=== PATIENT | male | born 1965 | race Caucasian/White ===

== ENCOUNTER → 2021-05-28 15:48 | Outpatient (CLI) | payer OTHER, SELFPAY | PROVIDERS: PCP Family Medicine; Visit Provider Nurse Practitioner | DX: Z20.822 Contact with and (suspected) exposure to COVID-19 (principal) | CPT/HCPCS: C9803; U0003; U0005 ==

== ENCOUNTER → 2021-06-03 09:14 | Outpatient (CLI) | payer OTHER, SELFPAY | PROVIDERS: PCP Family Medicine; Visit Provider Nurse Practitioner | DX: Z20.822 Contact with and (suspected) exposure to COVID-19 (principal) | CPT/HCPCS: C9803; U0003; U0005 ==

== ENCOUNTER → 2021-11-23 08:36 | Outpatient (POV) | payer OTHER, SELFPAY | PROVIDERS: Visit Provider Dermatology | DX: Z00.00 Encounter for general adult medical examination without abnormal findings (principal) ==

== ENCOUNTER → 2021-12-21 08:46 | Outpatient (POV) | payer OTHER, SELFPAY | PROVIDERS: Visit Provider Dermatology | DX: Z00.00 Encounter for general adult medical examination without abnormal findings (principal) ==

== ENCOUNTER 2023-08-11 10:48 | Emergency (ER) | payer BC, SELFPAY ==
[2023-08-11] VITALS (8 sets, daily range): BP systolic 112–137; BP diastolic 52–81; PULSE 58–73; RESP 15; TEMP 36.6–36.7; O2SAT 93–100; BMI 22.4
--- NOTE | 2023-08-11 10:58 | HMH.EDGENADL ---
Discharge Plan Disposition Patient Disposition: Home, Self-Care Condition: Good Prescriptions Prescriptions: New tamsulosin 0.4 mg capsule 0.4 mg PO DAILY Qty: 14 0RF ketorolac 10 mg tablet 10 mg PO Q8H PRN (Reason: pain) 5 Days Qty: 14 0RF oxycodone 5 mg tablet 5 mg PO Q8H PRN (Reason: pain) Qty: 10 0RF Referrals Follow up/Referrals: Mitzi Messina MD [Primary Care Provider] - See instructions Tj Walton MD [Staff Physician] - See instructions Cristian Narayan MD [Referring] - See instructions Activity Restrictions/Add. Instructions Additional Instructions/Restrictions: Please follow-up with urology. Please return with any new or worsening symptoms. Please take the 2 medications I prescribed for pain and also to help pass the stone. Clinical Impressions Clinical Impression: Urolithiasis Qualifiers: Urinary calculus location: kidney and ureter Qualified Code(s): N20.2 - Calculus of kidney with calculus of ureter Instructions Patient Instructions: DI for Acute Abdominal Pain Discharge ED Provider: Bubba Gonzalez General Adult HPI General Chief complaint: Abdominal Pain Stated complaint: kidney stones Time Seen by Provider: 08/11/23 10:52 History of Present Illness HPI narrative: Patient presents with abrupt onset right-sided back pain that is nonradiating and severe, stable in course. He states he has had similar symptoms in the past associated with urolithiasis. No syncope or presyncope. No chest pain or palpitations. He denies any component of abdominal pain at this time. He denies any dysuria or frequency. Additional history limited secondary to acuity of patient's presenting pain. He does deny any blood thinner usage. He denies any sick contacts. He denies any fevers or chills. Please note that above description of symptoms, in this electronic medical record under categorization of recalled from ER triage doctor by RN are reflective of an initial nursing assessment, however, is not reflective of my full history and physical exam that was personally taken and clarified. Consequentially, this preceding description of symptoms, which may include the patient's categorized chief complaint in the EMR, do not reflect my personal clinical impression, and the ultimate description of history of present illness and patient stated complaints should be deferred to this section of the note. Unless stated otherwise or congruent with this section of the note, additional signs, symptoms, or incongruence should be interpreted as inaccurate with my clinical impression. Related Data Previous Rx's Medication Instructions Recorded ketorolac 10 mg tablet 10 mg PO Q8H PRN pain 5 days #14 08/11/23 tabs oxycodone 5 mg tablet 5 mg PO Q8H PRN pain #10 tabs 08/11/23 tamsulosin 0.4 mg capsule 0.4 mg PO DAILY #14 caps 08/11/23 Allergies Allergy/AdvReac Type Severity Reaction Status Date / Time chlorpheniramine Allergy Intermediate SWELLING Verified 07/02/19 11:49 OF FACE phenylephrine Allergy Intermediate SWELLING Verified 07/02/19 11:49 OF FACE pseudoephedrine Allergy Intermediate SWELLING Verified 07/02/19 11:49 [From Sudafed] OF FACE [facility] Disclaimer: The information contained in this section may have been updated after the patient was seen, as this information can be updated by other users. Social History Smoking Status: Never smoker second hand exposure: No alcohol intake: never substance use type: denies use current occupational status: employed Travel in the last 8 weeks: None household members: family housing: house current occupation: [employer] current occupational exposures/hazards: No caffeine: Yes ROS Obtained: Yes Systems reviewed as appropriate & no additional complaints except as documented As per HPI Physical Exam General General appearance: alert and in distress Head Head exam: atraumatic and normocephalic Eye Eye exam: Present normal appearance Neck Neck exam: Present normal inspection Chest Chest inspection: Present normal inspection and symmetric chest wall rise Respiratory Respiratory exam: Present normal lung sounds bilaterally; Absent respiratory distress Cardiovascular Cardiovascular exam: Present regular rate and normal rhythm Abdominal Exam Abdominal exam: Present soft and other (Right-sided CVA tenderness to palpation, no abdominal tenderness, no midline back pain) Neurological Exam Neurological exam: Present alert and oriented X3 Psychiatric Psychiatric exam: Present normal affect and normal mood Skin Skin exam: Present warm and dry Medical Decision Making Medical Records Medical records reviewed: Yes I reviewed the patient's medical records. Darrel Inquiry Pt receiving controlled substance: No Vital Signs: 08/11/23 10:49 08/11/23 10:58 08/11/23 13:10 Temperature 97.9 F Temperature Source Oral Pulse Rate 73 61 Pulse Rate [Left Radial] 66 Respiratory Rate 15 Blood Pressure 117/52 L 137/81 Blood Pressure [Right Arm] 117/52 L Blood Pressure Mean [Right Arm] 73 02 Sat by Pulse Oximetry 97 100 100 Oxygen Delivery Method Room Air Room Air Room Air 08/11/23 13:30 08/11/23 14:00 08/11/23 14:30 Temperature Temperature Source Pulse Rate 60 59 L 65 Pulse Rate [Left Radial] Respiratory Rate Blood Pressure 129/79 119/73 112/66 Blood Pressure [Right Arm] Blood Pressure Mean [Right Arm] 02 Sat by Pulse Oximetry 93 L 94 L 98 Oxygen Delivery Method Room Air Room Air Room Air 08/11/23 15:00 08/11/23 16:32 Temperature 98.0 F Temperature Source Pulse Rate 58 L 58 L Pulse Rate [Left Radial] Respiratory Rate 15 Blood Pressure 125/72 125/72 Blood Pressure [Right Arm] Blood Pressure Mean [Right Arm] 02 Sat by Pulse Oximetry 99 Oxygen Delivery Method Room Air Lab Data Lab Results 08/11/23 11:02: WBC 5.2, RBC 5.55, Hgb 16.6, Hct 50.1, MCV 90.2, MCH 29.9, MCHC 33.1, RDW 13.5, Plt Count 349, MPV 7.8, Neut % (Auto) 51.3, Lymph % (Auto) 39.6, [place] % (Auto) 5.7, Eos % (Auto) 2.3, Baso % (Auto) 1.2, Neut # (Auto) 2.7, Lymph # (Auto) 2.1, [place] # (Auto) 0.3, Eos # (Auto) 0.1, Baso # (Auto) 0.1, Sodium 140, Potassium 3.9, Chloride 104, Carbon Dioxide 28, Anion Gap 11.9, BUN 16, Creatinine 1.00, Estimated Creat Clear 89, Estimated GFR 77, Est GFR ( Amer) 93, Glucose 110 H, Calcium 9.7, Total Bilirubin 0.9, AST 31, ALT 28, Alkaline Phosphatase 89, Total Protein 7.8, Albumin 4.7, Globulin 3.1, Albumin/Globulin Ratio 1.5 08/11/23 11:35: Urine Color Yellow, Urine Appearance Clear, Urine pH 6.0, Ur Specific [place] 1.025, Urine Protein Negative, Urine Glucose (UA) Negative, Urine Ketones Negative, Urine Blood 3+, Urine Nitrate Negative, Urine Bilirubin Negative, Urine Urobilinogen 0.2, Ur Leukocyte Esterase Negative, Urine RBC 10-20, Urine WBC Occasional, Ur Squamous Epith Cells Occasional, Urine Bacteria Trace 08/11/23 11:02 08/11/23 11:02 Orders (Tests/Meds): ED MEDICATIONS Discontinued Medications Generic Name Dose Route Start Last Admin Trade Name Didierq PRN Reason Stop Dose Admin Hydromorphone HCl 0.5 mg 08/11/23 13:15 08/11/23 13:06 Hydromorphone 2mg/Ml Syringe IV 08/11/23 13:16 0.5 mg ONCE ONE Administration Lactated Ringer's 1,000 mls @ 999 mls/hr 08/11/23 11:12 08/11/23 11:27 Lactated Ringer's 1000 Ml Bag IV 08/11/23 12:12 999 mls/hr .Q1H1M ONE Administration Iopamidol 100 ml 08/11/23 12:26 08/11/23 12:27 Iopamidol-370 (76%);100ml Bottle IV 08/11/23 12:27 100 ml ONCE ONE Administration Ketorolac Tromethamine 30 mg 08/11/23 11:12 08/11/23 11:27 Ketorolac 30mg/Ml Vial IV 08/11/23 11:13 30 mg ONCE ONE Administration Ketorolac Tromethamine 15 mg 08/11/23 12:33 08/11/23 12:38 Ketorolac 30mg/Ml Vial IV 08/11/23 12:34 15 mg ONCE ONE Administration Morphine Sulfate 4 mg 08/11/23 12:09 08/11/23 12:16 Morphine 4mg/Ml Syringe IV 08/11/23 12:10 4 mg ONCE ONE Administration Ondansetron HCl 4 mg 08/11/23 11:12 08/11/23 11:28 Ondansetron 4mg/2ml Vial IV 08/11/23 11:13 4 mg ONCE ONE Administration Sodium Chloride 50 ml 08/11/23 12:26 08/11/23 12:27 0.9 % Sodium Chloride 50 Ml Vial IV 08/11/23 12:27 50 ml ONCE ONE Administration Sodium Chloride 10 ml 08/11/23 12:26 Sodium Chloride 0.9% 10ml Syr (Rad Only) IV 09/10/23 12:25 NEEDED PRN Maintain IV Site ORDERS Category Date Time Status CT angio abdomen pelvis Stat Cat Scan 08/11/23 11:31 Completed CBC w/Auto Diff [Complete Blood Count Auto Diff] Stat Lab 08/11/23 11:02 Completed CMP [Comprehensive Metabolic Panel] Stat Lab 08/11/23 11:02 Completed Urinalysis and Microscopic Stat Lab 08/11/23 11:35 Completed Urine Culture Stat Micro 08/11/23 11:30 Received Medical Decision Narrative: Patient with history and exam per above presenting for evaluation of right-sided flank pain in the setting of history of urolithiasis Diagnoses considered include urolithiasis, pyelonephritis, hydronephrosis, given the intensity of patient's pain, demographic of abrupt onset back pain with no radiation to his abdomen upon presentation, as well as patient denying any dysuria, I do maintain an index of suspicion to warrant further evaluation for dissection or other acute intra-abdominal surgical pathology such as bowel obstruction ED workup and treatment included: ED MEDICATIONS Discontinued Medications Generic Name Dose Route Start Last Admin Trade Name Freq PRN Reason Stop Dose Admin Hydromorphone HCl 0.5 mg 08/11/23 13:15 08/11/23 13:06 Hydromorphone 2mg/Ml Syringe IV 08/11/23 13:16 0.5 mg ONCE ONE Administration Lactated Ringer's 1,000 mls @ 999 mls/hr 08/11/23 11:12 08/11/23 11:27 Lactated Ringer's 1000 Ml Bag IV 08/11/23 12:12 999 mls/hr .Q1H1M ONE Administration Iopamidol 100 ml 08/11/23 12:26 08/11/23 12:27 Iopamidol-370 (76%);100ml Bottle IV 08/11/23 12:27 100 ml ONCE ONE Administration Ketorolac Tromethamine 30 mg 08/11/23 11:12 08/11/23 11:27 Ketorolac 30mg/Ml Vial IV 08/11/23 11:13 30 mg ONCE ONE Administration Ketorolac Tromethamine 15 mg 08/11/23 12:33 08/11/23 12:38 Ketorolac 30mg/Ml Vial IV 08/11/23 12:34 15 mg ONCE ONE Administration Morphine Sulfate 4 mg 08/11/23 12:09 03/01/24 12:16 Morphine 4mg/Ml Syringe IV 08/11/23 12:10 4 mg ONCE ONE Administration Ondansetron HCl 4 mg 08/11/23 11:12 08/11/23 11:28 Ondansetron 4mg/2ml Vial IV 08/11/23 11:13 4 mg ONCE ONE Administration Sodium Chloride 50 ml 08/11/23 12:26 08/11/23 12:27 0.9 % Sodium Chloride 50 Ml Vial IV 08/11/23 12:27 50 ml ONCE ONE Administration Sodium Chloride 10 ml 08/11/23 12:26 Sodium Chloride 0.9% 10ml Syr (Rad Only) IV 09/10/23 12:25 NEEDED PRN Maintain IV Site ORDERS Category Date Time Status CT angio abdomen pelvis Stat Cat Scan 08/11/23 11:31 Completed CBC w/Auto Diff [Complete Blood Count Auto Diff] Stat Lab 08/11/23 11:02 Completed CMP [Comprehensive Metabolic Panel] Stat Lab 08/11/23 11:02 Completed Urinalysis and Microscopic Stat Lab 08/11/23 11:35 Completed Urine Culture Stat Micro 08/11/23 11:30 Received Labs were independently interpreted by me, significant for no leukocytosis, no evidence of acute kidney injury, urinalysis with trace pyuria, trace bacteriuria, however concurrent squamous cells which may make this a contaminant Imaging was independently visualized and interpreted by me, significant for right right-sided hydronephrosis secondary to proximal 5 mm urolith My clinical impression at this time is most consistent with at this time, obstructing urolithiasis in the absence of clinical picture of acute kidney injury, or infected stone. This being said with proximal stone and albeit likely contaminated urinalysis, patient was offered course of antibiotics and/or evaluation for admission but after shared decision making will elect to follow-up closely with urology in the absence of intractable symptoms or clinical evidence of cystitis I discussed my clinical impression with patient and answered all questions. At this time, the evidence for any other entities in the differential is insufficient to warrant any further testing or ED observation. This was explained to the patient. The patient was advised that persistent or worsening symptoms require further evaluation. I confirmed the patient's understanding of this discussion. Critical Care Critical Care Time Critical Care Time: No
[2023-08-11] MEDS: KETOROLAC 30MG/ML VIAL 30 MG IV (11:27)
[2023-08-11] MEDS: LACTATED RINGERS 1000ML 1,000 ML 999 ML IV (11:27)
[2023-08-11] MEDS: ONDANSETRON 4MG/2ML VIAL 4 MG IV (11:28)
--- NOTE | 2023-08-11 11:31 | CT_ITS ---
FINAL REPORT TECHNIQUE: Pre-and postcontrast images of the abdomen through the pelvis were performed by computed tomography. Extensive 3-D reconstruction images were performed. A CTA was performed. This study was performed with techniques to keep radiation doses as low as reasonably achievable (ALARA). Individualized dose reduction techniques using automated exposure control or adjustment of mA and/or kV according to the patient's size were employed. CLINICAL HISTORY: abrupt onset abdominal/back pain, hx urolithiasis COMPARISON: None FINDINGS: ABDOMEN AND PELVIS: The lung bases are clear. There is a nonobstructing left renal stone. There is right hydronephrosis and hydroureter to the level of an obstructing 5 mm right UVJ stone. There is either left hydronephrosis or multiple left parapelvic renal cysts. GI tract demonstrates no evidence of obstruction. The appendix is normal. GI tract is without acute abnormality. There is no lymphadenopathy. There is no free fluid. There is no acute osseous abnormality. CTA: There is no abdominal aortic aneurysm or dissection. The mesenteric, renal, and iliac vessels are patent without evidence of stenosis. IMPRESSION: No abdominal aortic aneurysm or dissection. Patent branch vessels. Obstructing 5 mm right UVJ stone. Left hydronephrosis versus parapelvic renal cysts. Reviewed, Interpreted and Dictated by Heather Bower MD Transcribed by Malorie Hoang Authenticated and [facility]
--- NOTE | 2023-08-11 11:34 | PC.NURSE ---
pt given urinal to provide urine sample. pts brother at bedside, chair provided for pts brother to sit at bedside.
[2023-08-11 11:37] LABS: Basophils # 0.1 K/mm3 (0-0.2); Basophils % 1.2 % (0.1-2.0); Eosinophils # 0.1 K/mm3 (0.0-0.4); Eosinophils % 2.3 % (0.1-12.0); Hematocrit 50.1 % (42.0-52.0); Hemoglobin 16.6 g/dL (14.1-18.0); Lymphocytes # 2.1 K/mm3 (0.7-4.5); Lymphocytes % 39.6 % (10-50); Mean Corpuscular HGB Conc 33.1 g/dL (31.8-35.4); Mean Corpuscular Hemoglobin 29.9 pg (27.0-31.2); Mean Corpuscular Volume 90.2 fl (80-94); Mean Platelet Volume 7.8 fl (7.4-10.4); Monocytes # 0.3 K/mm3 (0.1-1.0); Monocytes % 5.7 % (1.7-9.3); Neutrophils # 2.7 K/mm3 (1.8-7.8); Neutrophils % 51.3 % (37.0-80.0); Platelet Count 349 K/mm3 (142-424); Red Blood Count 5.55 M/mm3 (4.60-6.20); Red Cell Distribution Width 13.5 % (11.5-17.5); White Blood Count 5.2 K/mm3 (4.8-10.8)
[2023-08-11 11:42] LABS: Alanine Aminotransferase 28 U/L (12-78); Albumin Level 4.7 g/dl (3.5-5.0); Albumin/Globulin Ratio 1.5 (1.1-1.8); Alkaline Phosphatase 89 U/L (38-126); Anion Gap 11.9 mEq/L (5-15); Aspartate Amino Transferase 31 U/L (17-59); Bilirubin,Total 0.9 mg/dl (0.2-1.3); Blood Urea Nitrogen 16 mg/dl (9-20); Calcium 9.7 mg/dl (8.4-10.2); Carbon Dioxide 28 mmol/L (22.0-30.0); Chloride 104 mmol/L (98-107); Creatinine Clearance Estimated 89 mL/min (50-200); Estimated Glomerular Filt Rate 77 ml/min (>60); GFR (African American) 93 ML/MIN (>60); Globulin 3.1 g/dL (1.3-3.2); Glucose 110 mg/dl (74-100); Potassium 3.9 mmoL/L (3.5-5.1); Sodium 140 mmol/L (136-145); Total Protein,Serum 7.8 g/dl (6.3-8.2)
[2023-08-11 11:43] LABS: Microscopic, Urine URINE MICROSCOPIC (MICROSCOPIC)
--- NOTE | 2023-08-11 11:47 | PC.NURSE ---
pt is resting in bed asked for something to eat but md states he prefer him to wait til after scans, visitors at bs and call light in reach
[2023-08-11 12:04] LABS: Appearance,Urine CLEAR (Clear); Blood, Urine 3+ (Negative); Color,Urine YELLOW (Yellow); Glucose,Urine (UA) Negative (Negative); Ketones,Urine Negative (Negative); Protein,Urine Negative (Negative); Specific Gravity, Urine 1.025 (1.005-1.030)
[2023-08-11 12:05] LABS: Bilirubin,Urine Negative (Negative); Leukocyte Esterase,Urine Negative (Negative); Nitrate,Urine Negative (Negative); Urobilinogen,Urine 0.2 EU/dl (0.2)
--- NOTE | 2023-08-11 12:06 | PC.NURSE ---
family advised pain coming back, dr ochoa
[2023-08-11] MEDS: MORPHINE 4MG/ML SYRINGE 4 MG IV (12:16)
--- NOTE | 2023-08-11 12:22 | PC.NURSE ---
PT TO CT
[2023-08-11] MEDS: 0.9 % SODIUM CHLORIDE 50 ML VIAL IV (12:27)
[2023-08-11] MEDS: IOPAMIDOL-370 (76%);100ML BOTTLE 100 ML IV (12:27)
[2023-08-11 12:28] LABS: Bacteria,Urine Trace /lpf; Squamous Epithelial Cell,Urine Occasional #/hpf (0-5); WBC,Urine Occasional #/hpf (0-3)
--- NOTE | 2023-08-11 12:30 | PC.NURSE ---
PT RETURNED FROM CT
[2023-08-11] MEDS: KETOROLAC 30MG/ML VIAL 15 MG IV (12:38)
--- NOTE | 2023-08-11 12:48 | PC.NURSE ---
Patient's family coming out in the hallway reports the patient has increased pain. made aware.
--- NOTE | 2023-08-11 12:59 | PC.NURSE ---
rounded on pt stated meds given is not helping his abdominal pain he is in a standing/bent over position at bs. notified er nurse and md about pt statement, call light in reach and at bs
[2023-08-11] MEDS: HYDROMORPHONE 2MG/ML SYRINGE 0.5 MG IV (13:06)
--- NOTE | 2023-08-11 13:47 | PC.NURSE ---
ROUNDED ON PT, FEELING MUCH BETTER AFTER LAST DOSE OF PAIN MEDS. 06/21. UPDATED ON POC. NO NEEDS AT THIS TIME. CALL LIGHT WITHIN REACH. AT BEDSIDE
--- NOTE | 2023-08-11 14:47 | PC.NURSE ---
DR CHAVEZ AT BEDSIDE TO UPDATE PT AND FAMILY
--- NOTE | 2023-08-11 15:00 | PC.NURSE ---
Dr Anam pham
--- NOTE | 2023-08-11 15:11 | PC.NURSE ---
call made to dietary for lunch tray
[2023-08-24 09:44] LABS: Size 2x1; Specimen Type Not Provided
[2023-08-24 09:45] LABS: Composition PERCENTAGE
[2023-08-24 09:46] LABS: Calcium phosphate 30
[2023-08-24 09:48] LABS: Photo SCANNED IMAGE
== END 2023-08-11 16:33 | disposition home or self-care (01) ==
PROVIDERS: Emergency Provider Emergency Medicine; PCP Family Medicine
DX: N13.30 Unspecified hydronephrosis (principal); N20.2 Calculus of kidney with calculus of ureter; M54.9 Dorsalgia, unspecified
CPT/HCPCS: 74174; 80053; 81001; 82370; 85025; 87086; 96361; 96374; 96375; 96376; 99285; J2405; Q9967

== ENCOUNTER 2024-04-04 23:58 | Emergency (ER) | payer BC, OTHER, SELFPAY ==
[2024-04-04 23:58] VITALS: BP 145/80; PULSE 79; RESP 20; TEMP 36.8; O2SAT 97; BMI 23.7
[2024-04-05] VITALS (7 sets, daily range): BP systolic 115–137; BP diastolic 75–85; PULSE 49–64; RESP 16; TEMP 36.8; O2SAT 91–99
--- NOTE | 2024-04-05 00:28 | PC.NURSE ---
Dr. Bower is at bedside
--- NOTE | 2024-04-05 00:30 | CT_ITS ---
PROCEDURE INFORMATION: Exam: CT Abdomen And Pelvis Without Contrast Exam date and time: 04/05/2024 12:55 AM Age: 59 years old Clinical indication: Abdominal pain; Flank; Left; Additional info: L flank pain/cva tenderness, HX stones TECHNIQUE: Imaging protocol: Computed tomography of the abdomen and pelvis without contrast. Radiation optimization: All CT scans at this facility use at least one of these dose optimization techniques: automated exposure control; mA and/or kV adjustment per patient size (includes targeted exams where dose is matched to clinical indication); or iterative reconstruction. COMPARISON: CT ANGIO ABDOMEN PELVIS 08/11/2023 12:26 PM FINDINGS: Lungs: No acute finding. Liver: Normal. No mass. Gallbladder and biliary ducts: Normal. No calcified stones. No ductal dilation. Pancreas: Normal. No ductal dilation. Spleen: Normal. No splenomegaly. Adrenal glands: Normal. No mass. Kidneys and ureters: There is severe left hydroureteronephrosis and significant perinephric stranding secondary to an obstructing distal mid pelvic ureteral calculus measuring 4 x 7 mm. On the right there are few small intrarenal calculi. There is either dilation of the pelvocaliceal system or parapelvic cysts present. No ureteral dilation. There is there is questionable increased density within several upper and lower pole calices. Stomach and bowel: There are few left colon diverticula without acute inflammation. No bowel obstruction. No mucosal thickening. Appendix: No evidence of appendicitis. The appendix is not identified as a discrete structure however, there is no inflammatory process in the region of the cecum. Intraperitoneal space: Unremarkable. No free air. No significant fluid collection. Vasculature: Unremarkable. No abdominal aortic aneurysm. Lymph nodes: Unremarkable. No enlarged lymph nodes. Urinary bladder: Unremarkable as visualized. Reproductive: The prostate gland is enlarged. Bones/joints: Unremarkable. No acute fracture. Soft tissues: Unremarkable. IMPRESSION: 1. Obstructing distal left ureteral calculus measuring 4 x 7 mm causing severe left hydroureteronephrosis and significant perinephric stranding. 2. Several small right intrarenal calculi. Dilation of the right pelvocaliceal system secondary UPJ obstruction versus renal parapelvic cysts. Questionable areas of increased density within several upper and lower pole calices on the right as well. Further evaluation with nonemergent CT urogram is recommended. COMMENTS: Consistent with the [employer]'s Incidental Findings Committee white paper (J Am Tessie Radiol 2018): Any incidental renal lesion less than 1 cm or classified as too small to characterize, or any incidental cystic renal lesion characterized as simple-appearing, is likely benign. No follow-up imaging is recommended for these lesions per consensus recommendations based on imaging criteria.
[2024-04-05 00:38] LABS: Basophils % 0.5 % (0.1-2.0); Eosinophils # 0.2 K/mm3 (0.0-0.4); Eosinophils % 1.8 % (0.1-12.0); Hemoglobin 16.3 g/dL (14.1-18.0); Lymphocytes % 11.1 % (10-50); Mean Corpuscular HGB Conc 33.3 g/dL (31.8-35.4); Mean Corpuscular Hemoglobin 28.8 pg (27.0-31.2); Mean Corpuscular Volume 86.4 fl (80-94); Mean Platelet Volume 7.1 fl (7.4-10.4); Monocytes # 0.7 K/mm3 (0.1-1.0); Neutrophils # 6.9 K/mm3 (1.8-7.8); Neutrophils % 78.7 % (37.0-80.0); Platelet Count 253 K/mm3 (142-424); Red Blood Count 5.67 M/mm3 (4.60-6.20); Red Cell Distribution Width 13.5 % (11.5-17.5); White Blood Count 8.8 K/mm3 (4.8-10.8)
[2024-04-05 00:42] LABS: Alanine Aminotransferase 21 U/L (12-78); Albumin Level 4.3 g/dl (3.5-5.0); Albumin/Globulin Ratio 1.4 (1.1-1.8); Alkaline Phosphatase 72 U/L (38-126); Anion Gap 9.1 mEq/L (5-15); Aspartate Amino Transferase 33 U/L (17-59); Bilirubin,Total 0.9 mg/dl (0.2-1.3); Blood Urea Nitrogen 19 mg/dl (9-20); Calcium 9.2 mg/dl (8.4-10.2); Carbon Dioxide 29 mmol/L (22.0-30.0); Chloride 105 mmol/L (98-107); Creatinine Clearance Estimated 62 mL/min (50-200); Estimated Glomerular Filt Rate 48 ml/min (>60); GFR (African American) 58 ML/MIN (>60); Glucose 117 mg/dl (74-100); Potassium 4.1 mmoL/L (3.5-5.1); Sodium 139 mmol/L (136-145); Total Protein,Serum 7.3 g/dl (6.3-8.2)
--- NOTE | 2024-04-05 00:43 | [facility].EDGENADL ---
Discharge Plan Disposition Patient Disposition: Xfer Short-Term Hosp Condition: Fair Chief Complaint: PAIN Prescriptions Prescriptions: No Action oxycodone-acetaminophen [Percocet] 5-325 mg Tablet 1 tab PO Q6H PRN (Reason: Pain) Referrals Follow up/Referrals: Mitzi Messina MD [Primary Care Provider] - See instructions Activity Restrictions/Add. Instructions Additional Instructions/Restrictions: Go directly to [facility] ER. Do not make stops along the way. Do not eat or drink prior to your arrival. When you arrive, check in at the front and give them your packet of information. Clinical Impressions Clinical Impression: Ureterolithiasis, Hydronephrosis, left, YANCI (acute kidney injury) Print Language Print Language: Slovenian Discharge ED Provider: Sayda Bower General Adult HPI General Chief complaint: PAIN Stated complaint: kidney stone attack Time Seen by Provider: 04/05/24 00:09 Mode of Arrival: Family Vehicle Source of Information: Patient Limitations: No Limitations Description of Symptoms (Recalled from ER Triage Doc. by RN): Pt c/o L flank pain that began this morning and has been intermittent. States he has a hx of kindey stones and it feels just like the last one but not as severe . Reports nausea wo vomiting and chills. Reports dark reddish urine yesterday. History of Present Illness HPI narrative: 59-year-old male with history of multiple previous episodes of ureterolithiasis presents to the ER with left flank pain that started this morning. He describes it as kidney stone pain. He has had multiple stones, including for just this year. He reports dark, reddish tinged urine. He has had nausea but no vomiting. He has not had fevers but has had chills. Patient reports in the past he has had to have procedures for stones, but that has been multiple years. Patient reports taking an old dose of Percocet for his pain earlier this evening. Upon my evaluation, patient states he believes he just passed the stone, his pain seems to be somewhat improving. ROS otherwise negative Related Data Home Medications ?Medication ?Instructions ?Recorded ?Confirmed oxycodone-acetaminophen 5 mg-325 1 tab PO Q6H PRN Pain 04/05/24 04/05/24 mg tablet (Percocet) Allergies Allergy/AdvReac Type Severity Reaction Status Date / Time chlorpheniramine Allergy Intermediate SWELLING Verified 07/02/19 11:49 OF FACE phenylephrine Allergy Intermediate SWELLING Verified 07/02/19 11:49 OF FACE pseudoephedrine Allergy Intermediate SWELLING Verified 07/02/19 11:49 [From Sudafed] OF FACE [facility] Disclaimer: The information contained in this section may have been updated after the patient was seen, as this information can be updated by other users. Social History Smoking Status: Never smoker second hand exposure: No alcohol intake: never substance use type: denies use current occupational status: employed Travel in the last 8 weeks: None household members: family housing: house current occupation: [employer] current occupational exposures/hazards: No caffeine: Yes Other Medical History Have you received the Flu Vaccine for this season: No Have you received the Pneumonia Vaccine: No ROS Obtained: Yes All systems reviewed & no additional complaints except as documented Positive ROS per HPI Physical Exam General General appearance: alert and in no apparent distress Head Head exam: atraumatic and normocephalic Eye Eye exam: Present PERRL and EOMI ENT ENT exam: Present mucous membranes moist Neck Neck exam: Present normal inspection and full ROM Chest Chest inspection: Present symmetric chest wall rise Respiratory Respiratory exam: Absent respiratory distress or stridor Cardiovascular Cardiovascular exam: Present regular rate and normal rhythm Abdominal Exam Abdominal exam: Present soft; Absent distention or tenderness Extremities Exam Extremities exam: Present full ROM Back Exam Back exam: Present CVA tenderness (L); Absent CVA tenderness (R) Neurological Exam Neurological exam: Present alert and oriented X3; Absent motor sensory deficit Psychiatric Psychiatric exam: Present normal affect and normal mood Skin Skin exam: Present warm and dry Medical Decision Making Medical Records Medical records reviewed: Yes I reviewed the patient's medical records. Screening: Per USPSTF and CDC recommendations, given the prevalence of disease in our region, it is our hospital?s policy to screen for HIV and viral Hepatitis for all patients aged 18 and over and those with ongoing risk factors. MR Comment: Most recent evaluation in our ER for ureterolithiasis was in August 2023. He had 5 mm stone on imaging at that time. Darrel Inquiry Pt receiving controlled substance: No Vital Signs: 04/04/24 23:58 04/05/24 00:20 04/05/24 00:40 Temperature 98.2 F Temperature Source Oral Pulse Rate 61 60 Pulse Rate [Right] 79 Respiratory Rate 20 Blood Pressure 129/80 137/80 Blood Pressure [Right Arm] 145/80 H Blood Pressure Mean [Right Arm] 101 Blood Pressure Source [Right Arm] Automatic Cuff 02 Sat by Pulse Oximetry 97 92 L 91 L Oxygen Delivery Method Room Air 04/05/24 01:01 04/05/24 01:20 04/05/24 01:40 Temperature Temperature Source Pulse Rate 62 53 L 49 L Pulse Rate [Right] Respiratory Rate Blood Pressure 137/85 118/75 122/78 Blood Pressure [Right Arm] Blood Pressure Mean [Right Arm] Blood Pressure Source [Right Arm] 02 Sat by Pulse Oximetry 98 92 L 95 Oxygen Delivery Method Lab Data Lab Results 04/05/24 00:05: WBC 8.8, RBC 5.67, Hgb 16.3, Hct 49.0, MCV 86.4, MCH 28.8, MCHC 33.3, RDW 13.5, Plt Count 253, MPV 7.1 L, Neut % (Auto) 78.7, Lymph % (Auto) 11.1, [place] % (Auto) 8.0, Eos % (Auto) 1.8, Baso % (Auto) 0.5, Neut # (Auto) 6.9, Lymph # (Auto) 1.0, [place] # (Auto) 0.7, Eos # (Auto) 0.2, Baso # (Auto) 0.0, Sodium 139, Potassium 4.1, Chloride 105, Carbon Dioxide 29, Anion Gap 9.1, BUN 19, Creatinine 1.50 H, Estimated Creat Clear 62, Estimated GFR 48 L, Est GFR ( Amer) 58 L, Glucose 117 H, Calcium 9.2, Total Bilirubin 0.9, AST 33, ALT 21, Alkaline Phosphatase 72, Total Protein 7.3, Albumin 4.3, Globulin 3.0, Albumin/Globulin Ratio 1.4, HIV 1&2 Antibody Rapid Nonreactive 04/05/24 01:58: Urine Color Yellow, Urine Appearance Clear, Urine pH 6.0, Ur Specific [place] 1.025, Urine Protein Negative, Urine Glucose (UA) Negative, Urine Ketones Trace, Urine Blood 3+ A, Urine Nitrate Negative, Urine Bilirubin Negative, Urine Urobilinogen 0.2, Ur Leukocyte Esterase Negative, Urine RBC 5-10, Urine WBC Occasional, Ur Squamous Epith Cells 3-5, Amorphous Sediment Trace, Urine Bacteria Trace, Hyaline Casts Occasional, Urine Mucus 1+ 04/05/24 00:05 04/05/24 00:05 Orders (Tests/Meds): ED MEDICATIONS Discontinued Medications Generic Name Dose Route Start Last Admin Trade Name Phil PRN Reason Stop Dose Admin Sodium Chloride 1,000 mls @ 999 mls/hr 04/05/24 00:30 04/05/24 00:55 Sod Chlor 0.9% 1000ml Bag IV 04/05/24 01:30 999 mls/hr .Q1H1M ONE Administration Ketorolac Tromethamine 30 mg 04/05/24 00:30 04/05/24 00:55 Ketorolac 30mg/Ml Vial IV 04/05/24 00:31 30 mg ONCE ONE Administration Ondansetron HCl 4 mg 04/05/24 00:30 04/05/24 00:56 Ondansetron 4mg/2ml Vial IV 04/05/24 00:31 4 mg ONCE ONE Administration ORDERS Category Date Time Status CT abdomen pelvis wo con Stat Cat Scan 04/05/24 00:30 Completed CBC w/Auto Diff [Complete Blood Count Auto Diff] Stat Lab 04/05/24 00:05 Completed CMP [Comprehensive Metabolic Panel] Stat Lab 04/05/24 00:05 Completed HIV (1&2) Antibody Rapid Stat Lab 04/05/24 00:05 Completed Hep C Ab with Reflex to RNA Stat Lab 04/05/24 00:14 Received Urinalysis and Microscopic Stat Lab 04/05/24 01:58 Completed Medical Decision Narrative: In summary, this 59-year-old male with history of ureterolithiasis presents to the emergency department today with left flank pain. On initial evaluation patient is hemodynamically stable, afebrile, exam notable for significant left CVA tenderness, exam otherwise benign. Differential diagnosis includes but is not limited to nephrolithiasis, ureterolithiasis, hydronephrosis, kidney dysfunction, urinary tract infection, pyelonephritis, muscle spasm, most likely is ureterolithiasis given patient's history of this in the past and similar symptoms at this time. Based on these concerns, I ordered serum labs, urinalysis, CT imaging. Patient received Toradol, Zofran, IV fluids initially for treatment. Labs personally reviewed demonstrate no leukocytosis or anemia on CBC, CMP does demonstrate elevated creatinine at 1.5, patient is already receiving IV fluids. UA negative for findings of infection, blood present. CT imaging personally interpreted does demonstrate distal left ureteral stone causing significant hydronephrosis as well as findings of perinephric inflammation. See radiology read for final interpretation. Stone measures [address] Patient has large stone that is causing significant upstream effects including elevated creatinine, perinephric stranding, and severe hydronephrosis. At this size, it is unlikely to pass on its own and he is experiencing concerning renal changes. Interventional urology is not available at this facility, so patient requires transfer. He states his pain is currently tolerable, but he is in agreement with this plan and understands the reason for transfer. I discussed this case with Dr. Mason at transfer center including lab and imaging findings. He graciously excepted patient for ED to ED transfer to [facility] [place]. Since patient is hemodynamically stable and not severely ill, he is appropriate for transfer via private vehicle. IV was removed. Patient's is going to drive him to [facility]. Patient was provided a packet of information including a disc with his radiology studies. They were given instructions to go directly to the hospital, to not make any stops along the way, and patient is to not eat or drink. They indicated understanding and the patient was transferred via private vehicle in stable condition. Critical Care Critical Care Time Critical Care Time: No
[2024-04-05] MEDS: 0.9 % SODIUM CHLORIDE 1000ML 1,000 ML 999 ML IV (00:55)
[2024-04-05] MEDS: KETOROLAC 30MG/ML VIAL 30 MG IV (00:55)
[2024-04-05] MEDS: ONDANSETRON 4MG/2ML VIAL 4 MG IV (00:56)
[2024-04-05 01:20] LABS: HIV (1&2) Antibody Rapid NONREACTIVE (NONREACTIVE)
[2024-04-05 02:04] LABS: Microscopic, Urine URINE MICROSCOPIC (MICROSCOPIC)
[2024-04-05 02:23] LABS: Appearance,Urine CLEAR (Clear); Bilirubin,Urine Negative (Negative); Blood, Urine 3+ (Negative); Color,Urine YELLOW (Yellow); Glucose,Urine (UA) Negative (Negative); Ketones,Urine TRACE (Negative); Leukocyte Esterase,Urine Negative (Negative); Nitrate,Urine Negative (Negative); Protein,Urine Negative (Negative); Specific Gravity, Urine 1.025 (1.005-1.030); Urobilinogen,Urine 0.2 EU/dl (0.2)
[2024-04-05 02:36] LABS: WBC,Urine Occasional #/hpf (0-3)
[2024-04-05 02:37] LABS: Amorphous Sediment,Urine Trace /lpf; Bacteria,Urine Trace /lpf; Hyaline Casts,Urine Occasional #/lpf (0); Mucus,Urine 1+ /lpf
--- NOTE | 2024-04-05 04:11 | PC.NURSE ---
Gave report to Corinne HERNANDEZ at [facility].
[2024-04-06 08:51] LABS: HCV Ab Non Reactive (Non Reactive)
== END 2024-04-05 04:12 | disposition short-term general hospital (02) ==
PROVIDERS: Emergency Provider Emergency Medicine; PCP Family Medicine
DX: N17.9 Acute kidney failure, unspecified (principal); N13.30 Unspecified hydronephrosis; N20.1 Calculus of ureter; R10.32 Left lower quadrant pain; R11.0 Nausea; R68.83 Chills (without fever); R82.998 Other abnormal findings in urine
CPT/HCPCS: 74176; 80053; 81001; 85025; 86803; 87389; 96361; 96374; 96375; 99284; J1885; J2405; J7030